=== PATIENT | male | born 1995 | race African-American/Black ===

== ENCOUNTER 2022-05-20 15:14 | Emergency (ER) | payer OTHER ==
[~2022-05-20] VITALS: Ht 182.9 cm; Wt 111.1 kg
[2022-05-20 16:07] VITALS: BP 134/86
[2022-05-20 16:39] LABS: Hepatitis B Surface Antibody Positive (Negative)
== END 2022-05-20 18:30 | disposition home or self-care (01) ==
LOC: EEVIPCON 15:14 → ER 15:14
DX: S40.811A Abrasion of right upper arm, initial encounter (principal); X58.XXXA Exposure to other specified factors, initial encounter; Y93.89 Activity, other specified; Y92.89 Other specified places as the place of occurrence of the external cause; Y99.8 Other external cause status
CPT/HCPCS: 36415; 86703; 86706; 86803; 87340

== ENCOUNTER 2023-06-02 09:02 | Emergency (ER) | payer OTHER ==
[~2023-06-02] VITALS: Ht 182.9 cm; Wt 132.3 kg
[2023-06-02 09:08] VITALS: RESP 18; TEMP 98.2; O2SAT 95
[2023-06-02] MEDS ORDERED: TETANUS-DIPTH-ACEL PERTUSSIS 0.5ML SYR Tdap IM ONE (10:15)
[2023-06-02] MEDS ORDERED: ACETAMINOPHEN 500 MG TAB PO ONE (10:15)
[2023-06-02] MEDS ORDERED: NEOMYCIN-BACITRACIN-POLYM UNITDOSE PKG TOP OINT TOP ONE (10:15)
[2023-06-02 10:45] VITALS: BP 126/74; PULSE 116
[2023-06-02] MEDS ORDERED: AUG875T PO (11:12)
[2023-06-02] MEDS ORDERED: ACET-1079 PO (11:12)
[2023-06-03 08:48] LABS: Hepatitis B Surface Antibody Positive (Negative)
[2023-06-03 11:46] LABS: Hepatitis B Core IgM Negative
== END 2023-06-02 11:30 | disposition home or self-care (01) ==
LOC: EEVIPCON 09:02 → ER 09:02
DX: S71.152A Open bite, left thigh, initial encounter (principal); L25.9 Unspecified contact dermatitis, unspecified cause; W50.3XXA Accidental bite by another person, initial encounter; Y93.89 Activity, other specified; Y92.89 Other specified places as the place of occurrence of the external cause; Y99.8 Other external cause status
CPT/HCPCS: 36415; 86703; 86705; 86706; 86803; 87340; 90471; 90715

== ENCOUNTER → 2024-12-04 | Outpatient (CLI) | payer BC ==
[~2024-12-04] MED LIST: ACET-1079 PO; AUG875T PO
[2024-12-05 07:06] LABS: RPR Non Reactive (Non Reactive)
[2024-12-05 22:06] LABS: Chlamydia Trachomatis, NAA Negative (Negative); Neisseria gonorrhoeae, NAA Negative (Negative)
== END | disposition home or self-care (01) ==
LOC: LAB 15:47
PROVIDERS: ATTEND Nurse Practitioner Family
DX: Z11.3 Encounter for screening for infections with a predominantly sexual mode of transmission (principal); Z20.2 Contact with and (suspected) exposure to infections with a predominantly sexual mode of transmission
CPT/HCPCS: 86592; 86703